=== PATIENT | male | born 1935 | race Two or more races ===

== ENCOUNTER 2024-02-22 08:06 | Emergency (ER) | payer OTHER ==
[~2024-02-22] VITALS: Ht 165.1 cm; Wt 77.1 kg
[2024-02-22] MEDS ORDERED: DETROL LA4 MG (08:16)
[2024-02-22] MEDS ORDERED: TAMS0.4C (08:17)
[2024-02-22] MEDS ORDERED: SIMVASTATIN5 MG (08:17)
[2024-02-22] MEDS ORDERED: ARICEPT10 MG (08:17)
[2024-02-22] MEDS ORDERED: ACETAMINOPHEN 500 MG GEL..CAP PO STA (08:47)
[2024-02-22] MEDS ORDERED: DEXAMETHASONE SODIUM PHOSPHATE 4 MG/ML VIAL IM STA (08:48)
[2024-02-22] MEDS ORDERED: ACETAMINOPHEN 500 MG GEL..CAP PO ONE (08:56)
[2024-02-22] MEDS ORDERED: DEXAMETHASONE SODIUM PHOSPHATE 4 MG/ML VIAL ONE (08:57)
[2024-02-22] MEDS ORDERED: ACETAMINOPHEN500 M2 PO (09:49)
[2024-02-22] MEDS ORDERED: CYCLOBENZAPRINE5 MG PO (09:49)
[2024-02-22] MEDS ORDERED: TETANUS & DIPHTHERIA TOX,ADULT 0.5 ML VIAL IM STA (09:52)
[2024-02-22] MEDS ORDERED: TETANUS DIPHTHERIA TOX. ADSOR 5 ML VIAL IM ONE (09:56)
== END 2024-02-22 10:09 | disposition home or self-care (01) ==
LOC: ER 08:07
DX: S09.8XXA Other specified injuries of head, initial encounter (principal); W19.XXXA Unspecified fall, initial encounter; Y93.89 Activity, other specified; Y92.89 Other specified places as the place of occurrence of the external cause; Y99.8 Other external cause status
CPT/HCPCS: 70450; 72125; 96372; 99284; J1100